=== PATIENT | female | born 1980 | race Caucasian/White ===

== ENCOUNTER 2024-04-11 15:08 | Outpatient (CLI) | payer OTHER, SELFPAY ==
[2024-04-11 23:48] LABS: Chlamydia DNA Amplified* NOT DETECTED (No Detected); GC DNA Amplified* NOT DETECTED (No Detected)
== END 2024-04-11 15:09 | disposition home or self-care (01) ==
PROVIDERS: Visit Provider Emergency Medicine
DX: A64 Unspecified sexually transmitted disease (principal)
CPT/HCPCS: 86592; 86703; 86803; 87491; 87591